=== PATIENT | female | born 1995 | race Caucasian/White ===

== ENCOUNTER 2018-03-30 13:10 | Outpatient (CLI) | payer BC ==
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
== END 2018-03-30 13:11 | disposition home or self-care (01) ==
LOC: SCSRAD 13:10
PROVIDERS: ATTEND Physician Assistant
DX: M25.572 Pain in left ankle and joints of left foot (principal); S82.832A Other fracture of upper and lower end of left fibula, initial encounter for closed fracture; M79.89 Other specified soft tissue disorders